=== PATIENT | female | born 1940 | race Caucasian/White ===

== ENCOUNTER 2025-02-16 09:11 | Outpatient (REF) | payer MEDICARE, BC, SELFPAY ==
--- NOTE | ~2025-02-16 | XR_ITS ---
EXAMINATION: XR FOOT 3 OR MORE VIEWS RIGHT HISTORY: M79.671 - Pain in right foot COMPARISON: There are no prior studies available for comparison. FINDINGS: Three views of the right foot are submitted. Osseous mineralization is normal. There is no fracture or dislocation. There is mild narrowing of the 1st MTP joint. There is a moderate plantar calcaneal spur. There are vascular calcifications. XR/XR foot RT min 3V IMPRESSION: Plantar calcaneal spur. Mild narrowing of the 1st MTP joint. Electronically signed by: Mono Yanez MD 02/16/2025 10:37 AM EDT
== END 2025-02-16 09:12 | disposition home or self-care (01) ==
LOC: HO.HMGCX 09:11
PROVIDERS: PCP Nurse Practitioner Primary Care; Visit Provider Physician Assistant
DX: S93.491A Sprain of other ligament of right ankle, initial encounter (principal); M25.571 Pain in right ankle and joints of right foot; M79.671 Pain in right foot; M79.89 Other specified soft tissue disorders; W06.XXXA Fall from bed, initial encounter
CPT/HCPCS: 73630; 99202

== ENCOUNTER 2025-02-16 09:11 | Outpatient (AMB) | payer MEDICARE, BC, SELFPAY ==
[2025-02-16 09:21] VITALS: BP 116/62; PULSE 65; TEMP 36.8; O2SAT 93; BMI 34.2
--- NOTE | 2025-02-16 09:21 | AM.OFFWIN_ITS ---
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 - Approximately a month and a half ago, the patient fell off her bed, landing on her right side and buttocks, which led to bruising and swelling on the right side thigh, hip and buttocks - Initially, she could walk, but develop ed a sensation of a bone spur and increased pain in the instep area over time. - She went to her radio host twice since then, he did an XR which showed no fracture. - The patient has used various supports and braces, which have been difficult to apply and ineffective in alleviating symptoms. - Swelling worsened over the past week a nd a half, leading to the urgent care visit today. - Despite icing and resting, the patient continues to experience pain and balance issues. Physical Exam General: Cooperative, healthy appearing, comfortable, no acute distress and well developed Orientation: Patient oriented x3 Limitations: No limitations Head: Normal to inspection Ears: Hearing grossly normal bilaterally Nose: Normal External nose present Face and sinus: Normal facial exam Eyes: Appearance normal, both eyes and all related structures Neck: Normal visual inspection and Yes full ROM Respiratory: Normal respiratory effort and able to speak in complete sentences. Skin: No rashes or lesions noted Neuro: Patient oriented x3 Extremities: right lateral ankle with edema extending to dorsal midfoot, this area is also TTP, TTP to medial midfoot on plantar aspect, no skin changes. full ROM ankle, foot and toes. NVI PFSH Social History Patient Tobacco Use Status: Former Tobacco user Patient : No Review of Systems Const All systems reviewed & are unremarkable except as noted in HPI and below Physical Exam Vital Signs: Last Vital Signs Temp 98.2 F 02/16/25 09:21 Pulse 65 02/16/25 09:21 BP 116/62 02/16/25 09:21 Pulse Ox 93 02/16/25 09:21 Oxygen Delivery Method Room Air 02/16/25 09:21 BMI result Body Mass Index 34.2 Assessment & Plan Assessment & Plan (1) Right foot pain: Code(s): M79.671 - Pain in right foot Plan: Plan - Repeat x-ray to ensure no new fractures or injuries have occurred. My interpretation was no acute fx or dislocation, pending final Rads read. Likely sprain. - Short boot was not comfortable so we SHIRA wrapped her right ankle, taught her how to wrap it for her. - Continue icing the affected area and consider using a frozen water bottle for rolling under the foot to alleviate pain as she has a large spur on the calcaneous. - Rest, ice and use Aleve as needed. - Follow up with PCP if no improvement in pain. Patient was informed and verbally consented to the use of an ambient scribe for clinic note documentation during this visit. (2) Right ankle sprain: Code(s): S93.401A - Sprain of unspecified ligament of right ankle, initial encounter Qualifiers: Encounter type: initial encounter Involved ligament of ankle: anterior talofibular ligament Qualified Code(s): S93.491A - Sprain of other ligament of right ankle, initial encounter Plan: as above Orders: Orders XR foot RT min 3V Today M79.671 - Pain in right foot Coding Level of Care Code New Pt Level 4 (76854) Diagnoses Right foot pain M79.671 Sprain of anterior talofibular ligament of right ankle, initial encounter S93.491A Encounter type: initial encounter Involved ligament of ankle: anterior talofibular ligament
== END 2025-02-16 10:53 | disposition home or self-care (01) ==
PROVIDERS: Visit Provider Physician Assistant
DX: M79.671 Pain in right foot (principal); S93.491A Sprain of other ligament of right ankle, initial encounter

== ENCOUNTER → 2025-02-16 09:51 | Outpatient (BNV) | payer MEDICARE, BC, SELFPAY | PROVIDERS: PCP Nurse Practitioner Primary Care; Visit Provider Radiology Diagnostic Radiology | DX: M19.071 Primary osteoarthritis, right ankle and foot (principal) | CPT/HCPCS: 73630 ==

== ENCOUNTER 2025-04-27 13:19 | Outpatient (AMB) | payer MEDICARE, BC, SELFPAY ==
[2025-04-27 13:25] VITALS: BP 138/64; PULSE 72; TEMP 36.6; O2SAT 95; BMI 33.8
--- NOTE | 2025-04-27 13:25 | AM.OFFWIN_ITS ---
Intake Vital Signs 04/27/25 13:25 Height 5 ft 2 in Weight 185 lb BMI 33.8 BP 138/64 Blood Pressure Location Lt brachial Position Sitting Pulse 72 Pulse Source Pulse Oximeter Temp 97.8 F Temp Source Oral Pulse Oximetry (%) 95 Oxygen Delivery Method Room Air Intake Visit Reasons: EP - Bottom Lip Redness, Dry flakey skin Intake Note: pt presents with recurrent lower lip redness with flaking and a painful lesion at the center x1 year. denies h/o cold sores Patient Tobacco Use Status: Former Tobacco user Allergies Sulfa (Sulfonamide Antibiotics) Allergy (Intermediate, Verified 04/27/25 13:28) Rash Medication List - Last Reconciled 04/27/25 by Genia Michael MD albuterol sulfate 90 mcg/actuation 2 puffs inhalation Q4H PRN glipizide ER mg PO losartan-hydrochlorothiazide 100-25 mg 0.5 tabs PO DAILY nystatin topical DAILY PRN sertraline 100 mg PO DAILY Do you need a note to return to daycare/school/sports/work: No HPI EP - Bottom Lip Redness, Dry flakey skin HPI Details History of Present Illness The patient is an 84-year-old female presenting with a persistent lip lesion and peeling lips. Persistent lip lesion: - Started several months ago. - Described as a little bump which recen tly developed a white head. - Initially noticed while in [place]. - The lesion is painful only when touche d. - There has been progression from a smal l bump to a white pimple. - Reports nervousness upon noticing the white head. Peeling lips: - Chronic issue of lips caking up and pe eling. - No noted exacerbation by eating or dri nking. - The patient denies habitual lip lickin g, which could contribute. - Lipstick use + - The patient experiences dryness, poten tially worsened by the use of a mouthwa sh for dry mouth. Medical History: - Reports kidney stones treated annually . Medications: - Biotin (dosage not specified). - Probiotic (dosage not specified). Social History: - Resides part-time in [place] (4-5 kenneth hs) and part-time elsewhere. - Engages in exercise, specifically pool activities while in [place]. - Reports regular use of mouthwash for d ry mouth. - Makes seasonal relocation, primarily a round holiday, July, and November. Problem List - Persistent lip lesion - Peeling lips Plan - Prescribe Amoxicillin Clavulanate: 1 t ablet in the morning and 12 hours later for a total of 5 days to target potential bacterial infection of the lip lesion. - Recommend discontinuation of mouthwash to assess improvement in lip chapping. - Instruct application of Vaseline to ma intain lip moisture. - Advised against the use of lipstick an d suggested rinsing with salt water instead during antibiotic treatment. - Consider referral to dermatology based on lesion persistence post-antibiotics. - Discuss possibility of chemical irrita tion from lipstick or sensitivity to mouthwash as potential irritants to lips. 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 awake oriented x3 motor intact Skin: Normal turgor [facility] Social History Patient Tobacco Use Status: Former Tobacco user Physical Exam Vital Signs: Last Vital Signs Temp 97.8 F 04/27/25 13:25 Pulse 72 04/27/25 13:25 BP 138/64 04/27/25 13:25 Pulse Ox 95 04/27/25 13:25 Oxygen Delivery Method Room Air 04/27/25 13:25 BMI result Body Mass Index 33.8 Assessment & Plan Assessment & Plan (1) Painful skin lesion: Code(s): L98.9 - Disorder of the skin and subcutaneous tissue, unspecified (2) Chapped lips: Code(s): K13.0 - Diseases of lips Plan Persistent lip lesion: - Started several months ago. - Described as a little bump which recently developed a white head. - Initially noticed while in [place]. - The lesion is painful only when touched. - There has been progression from a small bump to a white pimple. - Reports nervousness upon noticing the white head. Peeling lips: - Chronic issue of lips caking up and peeling. - No noted exacerbation by eating or drinking. - The patient denies habitual lip licking, which could contribute. - Lipstick use + - The patient experiences dryness, potentially worsened by the use of a mouthwash for dry mouth. Medical History: - Reports kidney stones treated annually. Medications: - Biotin (dosage not specified). - Probiotic (dosage not specified). Social History: - Resides part-time in [place] (4-5 months) and part-time elsewhere. - Engages in exercise, specifically pool activities while in [place]. - Reports regular use of mouthwash for dry mouth. - Makes seasonal relocation, primarily around holiday, July, and November. Problem List - Persistent lip lesion - Peeling lips Plan - Prescribe Amoxicillin Clavulanate: 1 tablet in the morning and 12 hours later for a total of 5 days to target potential bacterial infection of the lip lesion. - Recommend discontinuation of mouthwash to assess improvement in lip chapping. - Instruct application of Vaseline to maintain lip moisture. - Advised against the use of lipstick and suggested rinsing with salt water instead during antibiotic treatment. - Consider referral to dermatology based on lesion persistence post-antibiotics. - Discuss possibility of chemical irritation from lipstick or sensitivity to mouthwash as potential irritants to lips. Lesion on lip is there for past 3 M, going against the possibility of cold sore Medications: New amoxicillin-pot clavulanate 875-125 mg 1 tab PO BID 10 tabs 0RF 5 days Coding Level of Care Code Est Pt Level 3 (25354) Diagnoses Painful skin lesion L98.9 Chapped lips K13.0
--- OUTSIDE RECORDS SUMMARY | 2025-04-27 15:20 | XMS_ITS | Clinical Summary ---
Author Organization [facility] Address [address] [place] [phone] Phone Care Team Providers Care Live In Caregiver Name Role Phone Osmany Casas MD Primary Care Provider [phone] Social History Tobacco Use Types Packs/Day Years Used Date Smoking Tobacco: Never Smokeless Tobacco: Never Alcohol Use Standard Drinks/Week Comments Yes 0 (1 standard drink = 0.6 oz pur e alcohol) Comments Unknown Sex and Gender Information Value Date Recorded Sex Assigned at Female 12/22/2024 1:49 PM EDT Legal Sex Female 2:47 PM EST Gender Identity Female 12/22/2024 1:49 PM EDT Sexual Orientation Straight 12/22/2024 1: 49 PM EDT Obstetrics History Plan of Treatment Health Maintenance Due Date Last Done Comments Diabetes: Annual Foot Exam 1950 Diabetes: Annual Retina Eye Exam 1950 DTaP,Tdap,and Td Vaccines (1 - Tdap) 1957 Pneumococcal Vaccine: 50+ Years (1 of 2 - PCV) 1959 Cholesterol Screening (Lipid Panel) 06/03/2022 Falls Risk Assessment 06/03/2022 Medicare Annual Wellness Visit 06/03/2022 Osteoporosis Screening (Bone Density Screening) 06/03/2022 Social Influencers of Health Screening 06/03/2022 Zoster Vaccines (3 of 3) 07/09/2022 05/14/2022, 12/03 Depression Screening 07/05/2024 Diabetes: Blood Sugar Control Test (HGBA1C) 01/16/2025 Hypertension/CHF/CAD Annual BMP Blood Test 01/16/2025 COVID-19 Vaccine ( season) 2025 06/23/2022, 03/30/2021, 08/25/2020, Additional history exists Influenza Vaccine (#1) 2025 RSV Immunization Adult Patients Completed 12/07/2024 HIB Vaccines Aged Out No longer eligi ble based on patient's age to complete this topic HPV Vaccines Aged Out No longer eligi ble based on patient's age to complete this topic Hepatitis A Vaccines Aged Out No long er eligible based on patient's age to complete this topic Hepatitis B Vaccines Aged Out No long er eligible based on patient's age to complete this topic IPV Vaccines Aged Out No longer eligi ble based on patient's age to complete this topic MMR Vaccines Aged Out No longer eligi ble based on patient's age to complete this topic Meningococcal ACWY Vaccine Aged Out N o longer eligible based on patient's age to complete this topic Meningococcal B Vaccine Aged Out No l onger eligible based on patient's age to complete this topic RSV Immunization Patients Under 20 months Aged Out No longer eligible based on patient's age to complete this topic Varicella Vaccines Aged Out No longer eligible based on patient's age to complete this topic Insurance MEDICARE [facility]) Care Teams Live In Caregiver Relationship Specialty Start Date End Date Osmany Casas MD [address] [address] PCP - General Internal Medicine 11/14/15
== END 2025-04-27 13:56 | disposition home or self-care (01) ==
PROVIDERS: Visit Provider Internal Medicine
DX: L98.9 Disorder of the skin and subcutaneous tissue, unspecified (principal); K13.0 Diseases of lips

== ENCOUNTER → 2025-04-27 13:19 | Outpatient (BNVA) | payer MEDICARE, BC, SELFPAY | PROVIDERS: Visit Provider Internal Medicine | DX: L98.9 Disorder of the skin and subcutaneous tissue, unspecified (principal); K13.0 Diseases of lips | CPT/HCPCS: 99212 ==